=== PATIENT | male | born 1960 ===

== ENCOUNTER 2025-10-06 11:00 | Emergency (ER) | payer OTHER ==
[2025-10-06 11:17] VITALS: BP 150/76; PULSE 70
[2025-10-06 12:04] LABS: BASOPHILS ABSOLUTE AUTO 0.03 10^3/uL (0.00-0.10); BASOPHILS PERCENT AUTO 0.4 % (0.0-1.0); EOSINOPHILS ABSOLUTE AUTO 0.28 10^3/uL (0.10-0.30); EOSINOPHILS PERCENT AUTO 3.7 % (1.0-3.0); IMMATURE GRAN ABSOLUTE AUTO 0.03 10^3/uL (0.00-0.04); IMMATURE GRAN PERCENT AUTO 0.4 % (0.0-0.4); LYMPHOCYTES ABSOLUTE AUTO 0.98 10^3/uL (1.00-4.00); LYMPHOCYTES PERCENT AUTO 13.1 % (20.0-40.0); MEAN PLATELET VOLUME 9.2 fL (7.4-10.4); MONOCYTES ABSOLUTE AUTO 0.90 10^3/uL (0.10-0.80); MONOCYTES PERCENT AUTO 12.0 % (2.0-8.0); NEUTROPHILS ABSOLUTE AUTO 5.26 10^3/uL (2.50-7.00); NEUTROPHILS PERCENT AUTO 70.4 % (50.0-70.0); PLATELET COUNT,PLT 328 10^3/uL (150-400); RED BLOOD CELL COUNT 3.59 10^6/uL (4.50-6.00); RED CELL DISTRIBUTION WIDTH 16.0 % (11.5-14.5); WHITE BLOOD CELL COUNT,WBC 7.48 10^3/uL (5.00-10.00)
[2025-10-06 14:28] LABS: ALANINE AMINOTRANSFERASE,ALT 15.0 U/L (14-63); ASPARTATE AMNIOTRANSFERASE,AST 25.0 U/L (15-37); BILIRUBIN TOTAL 0.4 mg/dL (0.2-1.0); BLOOD UREA NITROGEN,BUN 12.0 mg/dL (7-18); CARBON DIOXIDE,CO2 31.2 mmol/L (21.0-32.0); CHLORIDE,CL 105.0 mmol/L (98-107); CREATININE 0.74 mg/dL (0.51-1.17); EST CRCL DRUG DOSING (CG) 104.58 mL/min; GLUCOSE RANDOM 187.0 mg/dL (70-140); POTASSIUM,K 4.1 mmol/L (3.5-5.1); PROTEIN TOTAL,TP 7.1 g/dL (6.4-8.2); SODIUM,NA 144.0 mmol/L (136-145)
[2025-10-06 14:54] LABS: ESTIMATED GFR 100.0 mL/min (>=60)
[2025-10-06] MEDS: VANCOmycin 2 GM/400 ML 2 GM in Premix Bag 1 BAG IV SCH (17:37)
[2025-10-06] MEDS ORDERED: Sodium Chloride 0.9% 10 ML Syringe FLUSH PRN (17:40)
[2025-10-06] MEDS ORDERED: Naloxone 0.4 MG/ML SDV IVPUSH PRN (18:24)
[2025-10-06] MEDS: Ondansetron 4 MG/2 ML SDV IVPUSH ONE (18:31)
== END 2025-10-06 19:04 ==
LOC: KA.ED 11:00
DX: T81.49XA Infection following a procedure, other surgical site, initial encounter (principal); M48.061 Spinal stenosis, lumbar region without neurogenic claudication; E11.69 Type 2 diabetes mellitus with other specified complication; I50.43 Acute on chronic combined systolic (congestive) and diastolic (congestive) heart failure; M86.9 Osteomyelitis, unspecified; G89.29 Other chronic pain; Z79.01 Long term (current) use of anticoagulants; Z79.899 Other long term (current) drug therapy; Z79.82 Long term (current) use of aspirin; Z79.4 Long term (current) use of insulin; Z87.891 Personal history of nicotine dependence
CPT/HCPCS: 36415; 71045; 72080; 80053; 83880; 84484; 85025; 86140; 87070; 87205; 96365; 96375; 99285-25; A9270-GY; J1171; J2405; J3375